=== PATIENT | male | born 1990 | race Caucasian/White ===

== ENCOUNTER 2016-11-27 19:18 | Emergency (ER) | payer OTHER ==
[~2016-11-27] VITALS: Ht 170.2 cm; Wt 83.5 kg
[~2016-11-27 19:18] MED LIST: CLINDAMYCIN HC150 MG PO; MOBIC7.5 MG PO; NAPROXEN500 MG PO; PEN-VEE K,VEET500 MG PO; PERCOCET 5/31 TABLET PO; PERIDEX1 ML MM; TRAMADOL HCL50 MG PO
[2016-11-27 22:47] LABS: ADD MIUA? YES; BILIRUBIN NEGATIVE; BLOOD NEGATIVE; COLOR YELLOW ((YELLOW)); GLUCOSE (STRIP) NEGATIVE; KETONES NEGATIVE; LEUKOCYTES NEGATIVE; NITRITE NEGATIVE; PH, URINE 7.5 (5-8); PROTEIN (STRIP) TRACE; SPECIFIC GRAVITY 1.022 (1.000-1.030); UROBILINOGEN 0.2 MG/DL (0.2-1.0)
[2016-11-27] MEDS ORDERED: INDOCIN25 MG PO (23:14)
[2016-11-27] MEDS ORDERED: FIORICET 50-301 EACH PO (23:14)
[2016-11-27 23:28] VITALS: BP 137/93
[2016-11-27 23:30] LABS: AMORPHOUS PHOSPHATE CRYSTALS 3+; BACTERIA 1+; CASTS NONE SEEN /LPF; CRYSTALS PRESENT; EPITHELIAL CELLS NONE SEEN; MUCUS NONE SEEN; RED BLOOD CELLS NONE SEEN /HPF (0-5); WHITE BLOOD CELLS NONE SEEN /HPF (0-5)
== END 2016-11-27 23:29 | disposition home or self-care (01) ==
LOC: EME 19:18
PROVIDERS: Physician Assistant
DX: K08.89 Other specified disorders of teeth and supporting structures (principal); G89.29 Other chronic pain; R51 Headache; Z87.891 Personal history of nicotine dependence
CPT/HCPCS: 70450; 70486; 81003; 99281; 99284